=== PATIENT | female | born 1955 | race Hispanic/Latino ===

== ENCOUNTER 2023-08-23 08:16 | Day surgery (SDC) | payer MEDICARE ==
[2023-08-23] VITALS (13 sets, daily range): BP systolic 136–169; BP diastolic 62–86; PULSE 60–73; RESP 15–20
[~2023-08-23] VITALS: Ht 167.6 cm; Wt 90.7 kg
[~2023-08-23 08:16] MED LIST: DICY-20 PO; LEVO88CA4 PO; LOSA100T59 PO; SENN8.6T90 PO
[2023-08-23] MEDS ORDERED: IOHEXOL-350 50ML VIAL IV ONE (11:38)
[2023-08-23] MEDS ORDERED: LIDOCAINE HCL 1% 20 ML VIAL ONE (11:43)
[2023-08-23] MEDS ORDERED: PHENYLEPHRINE HCL 10 MG/ML 1ML VIAL IV ONE (11:49)
[2023-08-23] MEDS ORDERED: PROPOFOL 10 MG/ML 20ML VIAL IV ONE (11:52)
[2023-08-23] MEDS ORDERED: INDOMETHACIN 100 MG SUPP.RECT RC ONE (12:00)
[2023-08-23] MEDS: HYDRALAZINE 20MG/ML VIAL ONE (12:51)
== END 2023-08-23 13:40 | disposition home or self-care (01) ==
LOC: DAH 08:16
PROVIDERS: ATTEND Internal Medicine
DX: Z46.59 Encounter for fitting and adjustment of other gastrointestinal appliance and device (principal); K83.8 Other specified diseases of biliary tract; K80.70 Calculus of gallbladder and bile duct without cholecystitis without obstruction; R10.11 Right upper quadrant pain; R93.2 Abnormal findings on diagnostic imaging of liver and biliary tract; I10 Essential (primary) hypertension; E03.9 Hypothyroidism, unspecified; E11.9 Type 2 diabetes mellitus without complications; Z90.49 Acquired absence of other specified parts of digestive tract; Z79.890 Hormone replacement therapy
CPT/HCPCS: 43262; 74328; 43264; 43275; J0360; J2704; Q9967; A4620; A4215; A4223; A7002; A4222; A4221; A4663; J7030; A4606; C1773; 74330; J2371; J3490